=== PATIENT | female | born 1960 | race Caucasian/White ===

== ENCOUNTER → 2022-07-23 | Outpatient (CLI) | payer MEDICARE, OTHER ==
[~2022-07-23] MED LIST: DYAZIDE 37.5/251 EA PO; GLUCOPHAGE500 MG PO; IBUPROFEN600 MG PO; NORCO 5-325 TA1 EACH PO; NORCO 7.5-3251 EACH PO; PERCOCET 5/325 T1 EA PO
== END ==
LOC: HEART 5 06-21 14:00
DX: R00.2 Palpitations (principal); I11.9 Hypertensive heart disease without heart failure; I70.0 Atherosclerosis of aorta; I08.1 Rheumatic disorders of both mitral and tricuspid valves
CPT/HCPCS: 93306